=== PATIENT | female | born 1965 | race Asian ===

== ENCOUNTER 2016-08-31 22:03 | Emergency (ER) | payer MEDICAID ==
[~2016-08-31] VITALS: Ht 157.5 cm; Wt 70.1 kg
[2016-08-31 22:04] VITALS: BP 151/90
--- NOTE | 2016-08-31 22:55 | NUR ---
51 Y/O F W/C/O ABNORMAL VAGINAL BLEEDING X 4 DAYS. PT STATES STARTED HER PERIOD ON 08/28/16 AND SEEMS TO BE GETTING HEAVIER DAY BY DAY. PT ALSO STATES TO FEEL REALLY TIRED SINCE SHE STARTED HER MENSTRUAL CYCLE. ER MADE AWARE.
--- NOTE | 2016-08-31 22:55 | NUR ---
PT TAKEN TO BED 3
--- NOTE | 2016-08-31 23:25 | NUR ---
Dr. Sharif evaluating patient at bedside.
[2016-08-31 23:46] LABS: BASOPHILS # (AUTO) 0.1 K/uL (0.00-0.22); BASOPHILS % (AUTO) 0.9 % (0.0-2.0); EOSINOPHILS # (AUTO) 0.3 K/uL (0-0.4); HEMATOCRIT 33.6 % (36-48); HEMOGLOBIN 10.5 g/dL (12.0-16.0); LYMPHOCYTES # (AUTO) 1.7 K/uL (2.5-16.5); LYMPHOCYTES % (AUTO) 19.9 % (20.5-51.1); MEAN CORPUSCULAR HEMOGLOBIN 24 pg (27-31); MEAN CORPUSCULAR HGB CONC 31 g/dL (33-37); MEAN CORPUSCULAR VOLUME 76 fL (80-94); MONOCYTES # (AUTO) 0.6 K/uL (0.8-1.0); MONOCYTES % (AUTO) 7.3 % (1.7-9.3); NEUTROPHILS # (AUTO) 5.9 K/uL (1.8-7.7); NEUTROPHILS % (AUTO) 68.9 % (42.2-75.2); PLATELET COUNT (AUTO) 244 K/uL (140-450); RED BLOOD CELL COUNT(AUTO) 4.43 MIL/uL (4.20-5.40); RED CELL DISTRIBUTION WIDTH 16.7 % (11.6-13.7); WHITE BLOOD COUNT (AUTO) 8.6 K/uL (4.8-10.8)
[2016-09-01 00:39] VITALS: BP 141/95
--- NOTE | 2016-09-01 00:39 | NUR ---
Patient discharged with v/s stable. Written and verbal after care instructions given and explained. Patient alert, oriented and verbalized understanding of instructions. Ambulatory with steady gait. All questions addressed prior to discharge. ID band removed. Patient advised to follow up with PMD IN 2 DAYS. Rx of PROVERA given. Patient educated on indication of medication including possible reaction and side effects. Opportunity to ask questions provided and answered.
== END 2016-09-01 00:35 | disposition home or self-care (01) ==
LOC: MED 22:03
DX: N92.0 Excessive and frequent menstruation with regular cycle (principal); R03.0 Elevated blood-pressure reading, without diagnosis of hypertension; D64.9 Anemia, unspecified
CPT/HCPCS: 36415; 81025; 85025; 99283

== ENCOUNTER 2017-04-16 01:33 | Emergency (ER) | payer MEDICAID, OTHER ==
[~2017-04-16] VITALS: Ht 160 cm; Wt 72.2 kg
[2017-04-16 01:41] VITALS: BP 139/75
--- NOTE | 2017-04-16 01:46 | NUR ---
TO LOBBY, A/W SHEA ELY NOTED
[2017-04-16] MEDS ORDERED: NACL 0.9% 500 ML IV ONE ×2 (02:08)
[2017-04-16] MEDS ORDERED: KETOROLAC 30 MG/ML VIAL IVP ONE (02:10)
[2017-04-16] MEDS ORDERED: ONDANSETRON 4 MG/2 ML VIAL IVP ONE (02:10)
--- NOTE | 2017-04-16 02:20 | NUR ---
PT TAKEN TO BED 10
--- NOTE | 2017-04-16 02:20 | NUR ---
PT TAKEN TO CT
--- NOTE | 2017-04-16 02:40 | NUR ---
52/F CAME IN W C/O LT FLANK PAIN, N/V X YESTERDAY MORNING. PT REPORTS BURNING WHILE VOIDING, DENIES HEMATURIA. REPORTS VOMITING YESTERDAY MORNING, DENIES NAUSEA AT THIS TIME. REPORTS TO BE TAKING IBUPROFEN OTC WITH MINIMAL RELIEF OF SYMPTOMS. DENIES OTHER PMH/RX
[2017-04-16 03:50] VITALS: BP 127/67
--- NOTE | 2017-04-16 03:50 | NUR ---
Patient discharged with v/s stable. Written and verbal after care instructions given and explained. Patient alert, oriented and verbalized understanding of instructions. Ambulatory with steady gait. All questions addressed prior to discharge. ID band removed. Patient advised to follow up with PMD. Rx of Tramadol, Zofran, and Motrin given. Patient educated on indication of medication including possible reaction and side effects. Opportunity to ask questions provided and answered.
== END 2017-04-16 03:50 | disposition home or self-care (01) ==
LOC: MED 01:33
DX: N20.1 Calculus of ureter (principal); R03.0 Elevated blood-pressure reading, without diagnosis of hypertension
CPT/HCPCS: 74176; 96361; 96374; 99284; J1885; J2405; J7030